=== PATIENT | female | born 1950 | race Caucasian/White ===

== ENCOUNTER 2017-01-10 12:39 | Emergency (ER) | payer MEDICARE, MEDICAID ==
[2016-05-06 12:20] VITALS: BMI 35.1
[~2017-01-10 12:39] MED LIST: ELIQUIS5 MG PO; GLIPIZIDE10 MG PO; KEPPRA500 MG PO; LANTUS INSULIN10 ML SC; LIPITOR40 MG PO; LISINOPRIL10 MG PO; METOPROLOL TART50 MG; METOPROLOL TART50 MG PO; MIRAPEX0.25 MG PO; NORVASC2.5 MG PO; PERCOCET 5-3251 TAB PO; VICTOZA0.6 MG/0.1 SQ; XARELTO20 MG PO; ZANAFLEX4 MG PO
[2017-01-10 13:10] LABS: BASOPHILS 0.5 % (0.0-2.0); EOSINOPHILS 0 % (0-7); HEMOGLOBIN 12.4 g/dL (12-16); IMMATURE GRANULOCYTES 1.1 % (0-5); LYMPHOCYTES 16.1 % (15-50); MCH 29.2 pg (26.0-34.0); MCHC 34.4 g/dL (31.0-37.0); MCV 84.9 fL (80.0-100.0); MEAN PLATELET VOLUME 9.4 fL (7.4-10.4); MONOCYTES 5.2 % (2-11); NEUTROPHILS 77.1 % (40-80); RBC 4.24 10x6/uL (4.00-5.40); RDW 13.4 % (11.5-14.5); WBC 10.1 10x3/uL (4.8-10.8)
[2017-01-10 13:19] LABS: PLATELET COUNT 326 10x3/uL (130-400)
[2017-01-10 13:27] LABS: ALBUMIN 2.8 g/dL (3.4-5.0); ANION GAP 15.2 mmol/L (8-16); BILIRUBIN - TOTAL 0.38 mg/dL (0.2-1.3); CALCIUM 9.1 mg/dL (8.5-10.1); CARBON DIOXIDE 25.4 mmol/L (21.0-32.0); CREATININE - SERUM 1.7 mg/dL (0.6-1.3); POTASSIUM - SERUM 3.6 mmol/L (3.5-5.1); PROTEIN - SERUM 8.4 g/dL (6.4-8.2)
== END 2017-01-10 16:03 | disposition home or self-care (01) ==
LOC: D.ER 12:39
PROVIDERS: Family Medicine
DX: K57.92 Diverticulitis of intestine, part unspecified, without perforation or abscess without bleeding (principal); R11.10 Vomiting, unspecified; Z86.73 Personal history of transient ischemic attack (TIA), and cerebral infarction without residual deficits; E11.9 Type 2 diabetes mellitus without complications

== ENCOUNTER 2017-03-09 15:15 | Emergency (ER) | payer MEDICARE, MEDICAID ==
[2016-05-06 12:20] VITALS: BMI 35.1
== END 2017-03-09 18:32 | disposition home or self-care (01) ==
LOC: D.ER 15:15
DX: S93.401A Sprain of unspecified ligament of right ankle, initial encounter (principal); W01.0XXA Fall on same level from slipping, tripping and stumbling without subsequent striking against object, initial encounter; Y93.89 Activity, other specified; Y92.019 Unspecified place in single-family (private) house as the place of occurrence of the external cause; I10 Essential (primary) hypertension; E11.9 Type 2 diabetes mellitus without complications

== ENCOUNTER → 2017-05-11 08:34 | Outpatient (CLI) | payer MEDICARE, MEDICAID ==
[2016-05-06 12:20] VITALS: BMI 35.1
== END | disposition home or self-care (01) ==
LOC: D.RAD 08:34
DX: Z09 Encounter for follow-up examination after completed treatment for conditions other than malignant neoplasm (principal)

== ENCOUNTER 2018-06-07 11:41 | Inpatient (IN) | payer MEDICARE, MEDICAID ==
[2018-06-07] VITALS (7 sets, daily range): BP systolic 129–173; BP diastolic 78–107; BMI 31.7
[~2018-06-07] VITALS: Ht 167.6 cm; Wt 90.0 kg
--- NOTE | ~2018-06-07 | EC ---
PATIENT:HORTENSIA LAMB DATE OF SERVICE: 06/07/18 SEX: F MEDICAL RECORD: [id number] DATE OF : [birth year] LOCATION:D.M2 D.210 AGE OF PATIENT: 67 ADMISSION DATE: 06/07/18 REFERRING PHYSICIAN: INTERPRETING PHYSICIAN: ROD HESTER MD ECHOCARDIOGRAM REPORT ECHO CHARGES 4 ECHO COMPLETE Date: 06/08 CLINICAL DIAGNOSIS: AFIB ECHOCARDIOGRAPHIC MEASUREMENTS (adult normal given) AC root (d.<3.7cm) 3.2 cm LV Septum d (<1.2 cm> 1.3 cm Valve Excursion 0.9 cm LV Septum (systole) 1.8 cm Left Atria (s.<4.0cm> 2.5 cm LVPW d(<1.2cm) 0.9 cm RV (d.<2.3cm) 2.7 cm LVPW (sytole) 1.4 cm LV diastole(<5.6CM) 5.0 cm MV E-F(>70mm/sec) cm LV systole 4.3 cm LVOT Diameter 1.9 cm MV exc.(>10mm) cm Est.ejection fraction (50-75%) % DOPPLER: LVIT cm/sec A 84 cm/sec E 105 cm/sec LA cm/sec RVSP 37.4 mmHg LVOT 73 cm/sec AOP1/2T m/s Asc. Ao 221 cm/sec RVOT 75 cm/sec RA cm/sec PA 89 cm/sec AV Gradient Peak 19.6 mmHg AV Mean 12.0 mmHg AV Area 1.0 cm MV Gradient Peak 6.9 mmHg MV Mean 2.2 mmHg MV Area cm COMMENTS: Hoe Worker: [facility] Surgeon/President: 1 Dr. Hester TAPE# PACS Pericardial Effusion N DATE OF SERVICE: 06/08/2018 PROCEDURE: Echocardiogram. FINDINGS: 1. Left ventricular chamber size is within normal limits. Left ventricular systolic function is normal. Overall ejection fraction estimated at 60%. 2. Left atrium is within normal limits at 3.9 cm. Right atrium and right ventricular chamber sizes are mildly dilated. 3. Valvular structures: Aortic valve demonstrates mild calcific aortic ECHOCARDIOGRAM REPORT [id number] HORTENSIA LAMB stenosis, valve area calculates to 1.0 cm-squared with gradient of 20 mm across the valve. The remaining valvular structures have normal structure and motion. 4. Doppler interrogation elsewise reveals mild aortic insufficiency, moderate mitral regurgitation, moderate tricuspid regurgitation, no other valvular insufficiency or stenosis. Pulmonary systolic pressure is estimated 37 mmHg. 5. No evidence of pericardial effusion or left ventricular thrombus. TRANSINT:[id number] Voice Confirmation ID: [id number] DOCUMENT ID: [id number] ROD HESTER MD at 1752 CC: [id number] DICTATION DATE: 06/08/18 1119 CORPORATE HEALTH CONSULTANT: 06/08/18 1236 DIS IN 06/11/18 [facility] [address] [place] [address]
--- NOTE | ~2018-06-07 | PN ---
PATIENT:HORTENSIA LAMB MEDICAL RECORD: [id number] [facility] DATE: 06/07/18 PROGRESS NOTE DATE OF SERVICE: 06/09/2018 SUBJECTIVE: This is a 67-year-old woman who has had a history of atrial fibrillation. The patient has severe shortness of breath, was seen in the Emergency Room and noted to have atrial fibrillation with RVR. She also had pulmonary edema. The patient was given Lasix and the atrial fibrillation rate was controlled. The patient felt better yesterday evening, is much better this morning. No orthopnea, PND. There is no palpitation. There is no fever. The patient said that she is going home tomorrow. PHYSICAL EXAMINATION: GENERAL: An obese female patient, in no acute distress. VITAL SIGNS: Temperature 98.2, heart rate of 66, respiratory rate of 17, blood pressure 120/79, saturation 95%. SHEENT: Unremarkable. NECK: Supple. There is no adenopathy. CHEST: Clear. There are no wheezes or crackles. CARDIAC: Shows no jugular venous distention, murmur or gallops. ABDOMEN: Benign. EXTREMITIES: There is no clubbing, cyanosis or edema. LABORATORY DATA: White count 9.7, hemoglobin 9.7 and platelet count is 213. Chemistry is unremarkable except for creatinine of 2.4, BUN of 44. ASSESSMENT: 1. Acute on chronic atrial fibrillation with RVR. 2. Acute pulmonary edema. 3. Chronic kidney injury. PLAN: Beta josselyn for control of rate. The patient will need anticoagulation. Pulmonary will sign off. If needed, please call. TRANSINT:[id number] Voice Confirmation ID: [id number] DOCUMENT ID: [id number] DEANA MCGRAW at 1715 CC: [id number] DICTATION DATE: 06/09/18 1637 PLANER SETUP OPERATOR: 06/10/18 0103 ADM IN [place] [id number] [place] [address]
--- NOTE | ~2018-06-07 | PN ---
PATIENT:HORTENSIA LAMB MEDICAL RECORD: [id number] LOCATION:D. D.210 ADMISSION DATE: 06/07/18 PROGRESS NOTE DATE OF SERVICE: 06/10/2018 This is a 67-year-old female who was admitted with atrial fibrillation with rapid ventricular response. The patient was placed on beta-josselyn as well as Cardizem with improvement. The patient was supposed to leave today but last night had recurrent atrial fib with RVR. The patient denies any shortness of breath, fever or chills. There is no coughing. PHYSICAL EXAMINATION: GENERAL: Physical exam reveals an elderly female who is in no acute distress. VITAL SIGNS: Temperature 98.1, heart rate 104, respiratory rate of 18, blood pressure 173/89. SHEENT: Unremarkable. NECK: Supple. CHEST: Exam is clear and symmetrical. LUNGS: Good air flow bilaterally. HEART: Exam shows no jugular venous distention, no murmur or gallop. ABDOMEN: Benign. There is no tenderness. EXTREMITIES: There is no clubbing, cyanosis or edema. ASSESSMENT: 1. Atrial fibrillation with rapid ventricular response. 2. Pulmonary edema. 3. Hypertension. PLAN: 1. Control hypertension. 2. Discontinue DuoNeb. 3. Control atrial fib. 4. We will sign off this patient; if needed, please call. TRANSINT:[id number] Voice Confirmation ID: [id number] DOCUMENT ID: [id number] DEANA MCGRAW at 1307 CC: [id number] DICTATION DATE: 06/10/18 1717 MANAGEMENT TRAINER: 06/11/18 0308 DIS IN 06/11/18 [place] [id number] [place] [id number]
--- NOTE | ~2018-06-07 | CN ---
PATIENT NAME:HORTENSIA LAMB MEDICAL RECORD: [id number] : 54 LOCATION:. D.2108 ADMIT DATE: 06/07/18 ACCOUNT: [id number] CONSULTING PHYSICIAN: DEANA MCGRAW REFERRING PHYSICIAN: XIN ARREAGA MD DATE OF CONSULTATION: 06/08/2018 HISTORY OF PRESENT ILLNESS: This is a 67-year-old female who has had a history of diabetes as well as hypertension. She also had coronary artery disease. The patient was admitted with atrial fibrillation with rapid ventricular response. She was noted to have pneumonia. Admission was advised. The patient's atrial fibrillation rate has been controlled. The patient feels better today. Creatinine level has, however, increased with baseline at 1.79 or 2.55. There is no fever or chills. PAST MEDICAL HISTORY: Remarkable for diabetes, hypertension, congestive heart failure and [place] in the past. Has uterine carcinoma. PAST SURGICAL HISTORY: Includes cholecystectomy. ALLERGIES: There are no known allergies. MEDICATIONS: On admission include Lantus at bedtime, aspirin 81 mg daily, Norvasc 2.5 mg daily, lisinopril 10 mg daily, glipizide 20 mg b.i.d., Lipitor 20 mg daily, Zanaflex 4 mg p.o. t.i.d., Keppra 500 mg b.i.d., and Victoza 1.8 mg subQ daily. FAMILY HISTORY: Unremarkable. SOCIAL HISTORY: The patient denies any alcohol or drugs, but uses tobacco heavily for a long time and currently. REVIEW OF SYSTEMS: CONSTITUTIONAL: The patient denies any fever, chills, weight loss, or decreased appetite. SHEENT: There is no nasal drainage or headaches. There is no sore throat. CARDIOPULMONARY. The patient denies any orthopnea, PND. There is no chest pain. GASTROINTESTINAL: There is no nausea, vomiting or abdominal pain. GENITOURINARY: There is no frequency or dysuria. PHYSICAL EXAMINATION: GENERAL: Reveals a moderately obese female who is in no acute distress. VITAL SIGNS: Temperature 97.9, heart rate of 65, respiratory rate of 23, blood pressure 130/59, saturations 97%. SHEENT: Unremarkable. There is no nasal drainage or obstruction. Oral cavity is normal. NECK: Supple. There is no adenopathy. Trachea is midline. CHEST: Shows some mild crackles bilaterally in the bases. HEART: Shows no jugular venous distention. No murmur or gallops. ABDOMEN: Benign, without any tenderness. EXTREMITIES: Shows no clubbing, cyanosis or edema. LABORATORY DATA: White count 15.9, hemoglobin 12.3, platelet count 323. Today, her white count is 11.4, hemoglobin 10.1. Chemistries remarkable for creatinine CONSULT REPORT [id number] HORTNESIA LAMB R of 2.5, BUN is 40. Potassium is 3.5. Blood cultures are negative times 2. Echocardiogram showed normal left ventricular ejection fraction 60%. There is aortic insufficiency and moderate mitral regurgitation and moderate gastric regurgitation. Pulmonary systolic pressure is 37. IMPRESSION: 1. Pneumonia, was interstitial pneumonia. 2. Pulmonary congestion, probably secondary to atrial fibrillation. 3. Chronic obstructive pulmonary disease secondary to cigarette smoking. 4. Acute on chronic kidney injury. 5. Bipolar disease. 6. Atrial fibrillation/flutter, rate is controlled. The patient fully anticoagulated with Eliquis. PLAN: 1. Continue antibiotics. Bronchodilators, DuoNeb. 2. Monitor cardiac rhythm and rate. TIME SPENT: 60 minutes. TRANSINT:[id number] Voice Confirmation ID: [id number] DOCUMENT ID: [id number] DEANA MCGRAW at 1426 CC: [id number] DICTATION DATE: 06/08/18 1734 TREE SPECIALIST: 06/08/182005 ADM IN [facility] [address] [place] [address]
[2018-06-07] MEDS ORDERED: BAYER CHEWABLE81 MG PO (12:08)
[2018-06-07 13:11] LABS: BASOPHILS 0.6 % (0-2); EOSINOPHILS 0.6 % (0-7); HEMATOCRIT 36.5 % (36.0-48.0); HEMOGLOBIN 12.3 g/dL (12-16); IMMATURE GRANULOCYTES 0.3 % (0-5); LYMPHOCYTES 13.9 % (15-50); MCH 29.2 pg (26.0-34.0); MCHC 33.7 g/dL (31.0-37.0); MCV 86.7 fL (80.0-100.0); MEAN PLATELET VOLUME 10.4 fL (7.4-10.4); MONOCYTES 7.6 % (2-11); PLATELET COUNT 323 10x3/uL (130-400); RBC 4.21 10x6/uL (4.00-5.40); RDW 13.1 % (11.5-14.5); WBC 15.9 10x3/uL (4.8-10.8)
[2018-06-07 14:06] LABS: ALBUMIN 3.2 g/dL (3.4-5.0); ALKALINE PHOSPHATASE 102 U/L (46-116); ALT (SGPT) 22 U/L (10-68); BILIRUBIN - TOTAL 0.63 mg/dL (0.2-1.3); CALC OSMOLALITY 295 mosm/kg (275-300); CALCIUM 8.7 mg/dL (8.5-10.1); CARBON DIOXIDE 27.8 mmol/L (21.0-32.0); CHLORIDE - SERUM 104 mmol/L (98-107); CREATININE - SERUM 2.3 mg/dL (0.6-1.3); PROTEIN - SERUM 7.3 g/dL (6.4-8.2); SODIUM 142 mmol/L (136-145); UREA NITROGEN 38 mg/dL (7-18); eGFR NON AFRICAN AMERICAN 23 mL/min (90-120)
[2018-06-07 14:07] LABS: GLUCOSE 174 mg/dL (74-106)
[2018-06-07 14:11] LABS: CKMB 1.1 U/L (0.0-3.6); CREATINE KINASE 120 UL (21-215); PRO BNP 8710 pg/mL (0-125); TROPONIN-I 0.019 ng/mL (0.000-0.060)
[2018-06-07 14:29] LABS: APPEARANCE HAZY (CLEAR); BILIRUBIN NEGATIVE (NEGATIVE); COLOR YELLOW (YELLOW); GLUCOSE 100 mg/dL (NEGATIVE); KETONE NEGATIVE (NEGATIVE); NITRITE NEGATIVE (NEGATIVE); PROTEIN 3+ mg/dL (NEGATIVE); SPECIFIC GRAVITY 1.015 (1.005-1.020); UROBILINOGEN NORMAL (NORMAL)
[2018-06-07 14:32] LABS: BACTERIA MODERATE /hpf (NONE SEEN); EPITHELIAL CELLS 0-5 /hpf (0-5); MUCUS <1+ /lpf (NONE SEEN); WHITE CELLS - URINE 0-5 /hpf (0-5)
[2018-06-07 18:38] LABS: CHOL - HDL RATIO 4.9 ratio (2.3-4.1); LDL-HDL RATIO 3.2 ratio (1.5-3.5)
[2018-06-07 19:48] LABS: CKMB 0.8 U/L (0.0-3.6); CREATINE KINASE 105 UL (21-215); TROPONIN-I 0.018 ng/mL (0.000-0.060)
[2018-06-08 02:11] VITALS: BP 123/64
[2018-06-08 05:47] LABS: BASOPHILS 0.6 % (0-2); EOSINOPHILS 2.3 % (0-7); HEMATOCRIT 29.8 % (36.0-48.0); HEMOGLOBIN 10.1 g/dL (12-16); IMMATURE GRANULOCYTES 0.4 % (0-5); LYMPHOCYTES 22.1 % (15-50); MCH 29.6 pg (26.0-34.0); MCHC 33.9 g/dL (31.0-37.0); MCV 87.4 fL (80.0-100.0); MEAN PLATELET VOLUME 9.9 fL (7.4-10.4); MONOCYTES 9.6 % (2-11); RBC 3.41 10x6/uL (4.00-5.40); RDW 13.4 % (11.5-14.5)
[2018-06-08 05:49] LABS: PLATELET COUNT 248 10x3/uL (130-400); WBC 11.4 10x3/uL (4.8-10.8)
[2018-06-08 06:28] VITALS: BP 125/67
[2018-06-08 06:30] LABS: ALBUMIN 2.6 g/dL (3.4-5.0); ALKALINE PHOSPHATASE 69 U/L (46-116); BILIRUBIN - TOTAL 0.45 mg/dL (0.2-1.3); CALC OSMOLALITY 291 mosm/kg (275-300); CALCIUM 8.2 mg/dL (8.5-10.1); CARBON DIOXIDE 26.4 mmol/L (21.0-32.0); CHLORIDE - SERUM 104 mmol/L (98-107); CKMB 0.8 U/L (0.0-3.6); CREATINE KINASE 86 UL (21-215); CREATININE - SERUM 2.5 mg/dL (0.6-1.3); GLUCOSE 173 mg/dL (74-106); POTASSIUM - SERUM 3.5 mmol/L (3.5-5.1); PROTEIN - SERUM 6.5 g/dL (6.4-8.2); SODIUM 139 mmol/L (136-145); TROPONIN-I < 0.017 ng/mL (0.000-0.060); UREA NITROGEN 40 mg/dL (7-18); eGFR NON AFRICAN AMERICAN 20 mL/min (90-120)
[2018-06-08 06:34] LABS: ALT (SGPT) 16 U/L (10-68)
[2018-06-08 07:40] VITALS: BP 141/70
[2018-06-08 11:55] VITALS: BP 120/67
[2018-06-08 13:01] VITALS: Ht 167.6 cm; Wt 90.0 kg
[2018-06-08 15:08] VITALS: BP 130/59
[2018-06-08 18:20] LABS: EOSINOPHILS 4.3 % (0-7); HEMOGLOBIN 9.8 g/dL (12-16); IMMATURE GRANULOCYTES 0.3 % (0-5); LYMPHOCYTES 29.1 % (15-50); MCHC 32.7 g/dL (31.0-37.0); MCV 88.8 fL (80.0-100.0); MEAN PLATELET VOLUME 10.1 fL (7.4-10.4); MONOCYTES 8.5 % (2-11); NEUTROPHILS 56.8 % (40-80); PLATELET COUNT 205 10x3/uL (130-400); RBC 3.38 10x6/uL (4.00-5.40); RDW 13.3 % (11.5-14.5); WBC 9.2 10x3/uL (4.8-10.8)
[2018-06-08 18:55] LABS: ALBUMIN 2.6 g/dL (3.4-5.0); ANION GAP 13.1 mmol/L (8-16); BILIRUBIN - TOTAL 0.15 mg/dL (0.2-1.3); CALCIUM 7.8 mg/dL (8.5-10.1); CARBON DIOXIDE 26.6 mmol/L (21.0-32.0); CREATININE - SERUM 2.5 mg/dL (0.6-1.3); MAGNESIUM - SERUM 1.4 mg/dL (1.8-2.4); POTASSIUM - SERUM 3.7 mmol/L (3.5-5.1); PROTEIN - SERUM 6.2 g/dL (6.4-8.2)
[2018-06-08 21:12] VITALS: BP 155/74
[2018-06-09] VITALS (9 sets, daily range): BP systolic 120–173; BP diastolic 60–79
[2018-06-09 05:26] LABS: BASOPHILS 0.6 % (0-2); EOSINOPHILS 4.5 % (0-7); HEMATOCRIT 29.3 % (36.0-48.0); HEMOGLOBIN 9.7 g/dL (12-16); IMMATURE GRANULOCYTES 0.3 % (0-5); LYMPHOCYTES 24.9 % (15-50); MCHC 33.1 g/dL (31.0-37.0); MCV 87.5 fL (80.0-100.0); MEAN PLATELET VOLUME 10.2 fL (7.4-10.4); MONOCYTES 9.1 % (2-11); NEUTROPHILS 60.6 % (40-80); PLATELET COUNT 213 10x3/uL (130-400); RBC 3.35 10x6/uL (4.00-5.40); RDW 13.1 % (11.5-14.5); WBC 9.7 10x3/uL (4.8-10.8)
[2018-06-09 05:31] LABS: ALBUMIN 2.4 g/dL (3.4-5.0); ANION GAP 13.2 mmol/L (8-16); BILIRUBIN - TOTAL 0.23 mg/dL (0.2-1.3); CALCIUM 8.1 mg/dL (8.5-10.1); CARBON DIOXIDE 24.3 mmol/L (21.0-32.0); CREATININE - SERUM 2.4 mg/dL (0.6-1.3); POTASSIUM - SERUM 3.5 mmol/L (3.5-5.1); PROTEIN - SERUM 6.4 g/dL (6.4-8.2)
[2018-06-09 18:30] LABS: BASOPHILS 0.6 % (0-2); EOSINOPHILS 3.7 % (0-7); HEMATOCRIT 30.3 % (36.0-48.0); IMMATURE GRANULOCYTES 0.3 % (0-5); LYMPHOCYTES 21.3 % (15-50); MCH 28.8 pg (26.0-34.0); MCV 87.3 fL (80.0-100.0); MEAN PLATELET VOLUME 9.9 fL (7.4-10.4); MONOCYTES 8.4 % (2-11); NEUTROPHILS 65.7 % (40-80); PLATELET COUNT 217 10x3/uL (130-400); RBC 3.47 10x6/uL (4.00-5.40); RDW 12.9 % (11.5-14.5); WBC 10.2 10x3/uL (4.8-10.8)
[2018-06-09 18:58] LABS: ALBUMIN 2.7 g/dL (3.4-5.0); ANION GAP 10.3 mmol/L (8-16); BILIRUBIN - TOTAL 0.12 mg/dL (0.2-1.3); CALCIUM 8.2 mg/dL (8.5-10.1); CARBON DIOXIDE 26.8 mmol/L (21.0-32.0); CREATININE - SERUM 2.5 mg/dL (0.6-1.3); POTASSIUM - SERUM 4.1 mmol/L (3.5-5.1); PROTEIN - SERUM 6.9 g/dL (6.4-8.2)
[2018-06-10 04:00] VITALS: BP 171/78
[2018-06-10 05:38] LABS: BASOPHILS 0.5 % (0-2); EOSINOPHILS 3.9 % (0-7); HEMATOCRIT 29.1 % (36.0-48.0); HEMOGLOBIN 9.6 g/dL (12-16); IMMATURE GRANULOCYTES 0.2 % (0-5); LYMPHOCYTES 21.4 % (15-50); MCH 28.7 pg (26.0-34.0); MCV 86.9 fL (80.0-100.0); MEAN PLATELET VOLUME 9.9 fL (7.4-10.4); MONOCYTES 7.3 % (2-11); NEUTROPHILS 66.7 % (40-80); PLATELET COUNT 229 10x3/uL (130-400); RBC 3.35 10x6/uL (4.00-5.40); WBC 11.1 10x3/uL (4.8-10.8)
[2018-06-10 06:42] LABS: ALBUMIN 2.7 g/dL (3.4-5.0); ANION GAP 14.7 mmol/L (8-16); BILIRUBIN - TOTAL 0.22 mg/dL (0.2-1.3); CALCIUM 8.6 mg/dL (8.5-10.1); CARBON DIOXIDE 23.8 mmol/L (21.0-32.0); CREATININE - SERUM 2.5 mg/dL (0.6-1.3); POTASSIUM - SERUM 3.5 mmol/L (3.5-5.1); PROTEIN - SERUM 6.9 g/dL (6.4-8.2)
[2018-06-10 08:37] VITALS: BP 176/80
[2018-06-10] MEDS ORDERED: BETAPACE 80 MG80 MG PO (10:52)
[2018-06-10] MEDS ORDERED: OMNICEF300 MG PO (10:52)
[2018-06-10 12:18] VITALS: BP 173/89
[2018-06-10 12:27] VITALS: BP 173/89
[2018-06-10 20:00] VITALS: BP 162/75
[2018-06-11] VITALS: BP 161/74
[2018-06-11 04:00] VITALS: BP 159/70
[2018-06-11 05:07] LABS: BASOPHILS 0.5 % (0-2); EOSINOPHILS 4.1 % (0-7); HEMATOCRIT 27.8 % (36.0-48.0); HEMOGLOBIN 9.3 g/dL (12-16); IMMATURE GRANULOCYTES 0.1 % (0-5); LYMPHOCYTES 24.9 % (15-50); MCH 28.9 pg (26.0-34.0); MCHC 33.5 g/dL (31.0-37.0); MCV 86.3 fL (80.0-100.0); MEAN PLATELET VOLUME 10.2 fL (7.4-10.4); NEUTROPHILS 61.4 % (40-80); PLATELET COUNT 237 10x3/uL (130-400); RBC 3.22 10x6/uL (4.00-5.40); RDW 13.1 % (11.5-14.5); WBC 9.2 10x3/uL (4.8-10.8)
[2018-06-11 05:55] LABS: ALBUMIN 2.5 g/dL (3.4-5.0); ANION GAP 12.5 mmol/L (8-16); BILIRUBIN - TOTAL 0.19 mg/dL (0.2-1.3); CALCIUM 8.2 mg/dL (8.5-10.1); CARBON DIOXIDE 27.1 mmol/L (21.0-32.0); CREATININE - SERUM 2.4 mg/dL (0.6-1.3); POTASSIUM - SERUM 3.6 mmol/L (3.5-5.1); PROTEIN - SERUM 6.5 g/dL (6.4-8.2)
[2018-06-11 09:39] VITALS: BP 148/63
[2018-06-11] MEDS ORDERED: BETAPACE 80 MG80 MG PO (11:28)
[2018-06-11] MEDS ORDERED: OMNICEF300 MG PO (11:29)
== END 2018-06-11 12:50 | disposition home or self-care (01) | DRG 193 ==
LOC: D.ER 11:41 → D.EDHOLD 14:27 → D.M2 14:27
PROVIDERS: Family Medicine; Family Medicine Adult Medicine; Internal Medicine
DX: J18.9 Pneumonia, unspecified organism (principal); I50.31 Acute diastolic (congestive) heart failure; N17.0 Acute kidney failure with tubular necrosis; I13.0 Hypertensive heart and chronic kidney disease with heart failure and stage 1 through stage 4 chronic kidney disease, or unspecified chronic kidney disease; N39.0 Urinary tract infection, site not specified; I48.91 Unspecified atrial fibrillation; Z86.73 Personal history of transient ischemic attack (TIA), and cerebral infarction without residual deficits; K21.9 Gastro-esophageal reflux disease without esophagitis; E11.22 Type 2 diabetes mellitus with diabetic chronic kidney disease; N18.9 Chronic kidney disease, unspecified; J44.9 Chronic obstructive pulmonary disease, unspecified